=== PATIENT | female | born 1965 | race Caucasian/White ===

== ENCOUNTER 2024-07-16 09:28 | Outpatient (AMB) | payer BC, SELFPAY ==
[2024-07-16 09:55] VITALS: BP 110/73; PULSE 69; RESP 18; TEMP 36.2; O2SAT 97; BMI 41.4
--- NOTE | 2024-07-16 09:55 | PD.ORTHCLVIS ---
Vital signs 07/16/24 09:55 Height 1.63 m Height Method Stated Weight 109.458 kg Weight Measurement Method Standing Scale BMI 41.4 BP 110/73 Blood Pressure Source Automatic Cuff Blood Pressure Location Left Upper Arm Position Sitting Respiration 18 Pulse 69 Pulse Source Monitor Temp 97.2 F Temp Source Temporal Artery Scan Pulse Oximetry (%) 97 Oxygen Delivery Method Room Air Med/Allergies Allergies & Medications Allergies No Known Allergies Allergy (Verified 07/16/24 09:56) Medication Reconciliation estradiol 2 mg tablet 2 mg PO QDAY 02/01/19 [History Confirmed 02/01/19] diclofenac sodium 3 % topical gel 1 applic topical BID #100 grams 07/16/24 [Rx] magnesium 200 mg tablet 200 mg PO QDAY 07/16/24 [History Confirmed 07/16/24] montelukast 10 mg tablet 10 mg PO QDAY 07/16/24 [History Confirmed 07/16/24] ondansetron HCl 4 mg tablet 4 mg PO Q8H 07/16/24 [History Confirmed 07/16/24] Subjective Visit Visit for: knee Immunization / Flu Flu Vaccine in the Last 12 Months: No Flu Vaccine Exclusion Criteria: No Exclusion Criteria History of Present Illness Chief complaint: LEFT KNEE PAIN Date of injury / onset of symptoms: YEARS Patient is a pleasant 58-year-old female with bilateral knee pain worse on the left. She is using a cane. She has had hyaluronic acid acid injections in the past. Also tried naproxen. She has been trying to lose weight and has Had bariatric surgery before. Personal History Occupation: UNEMPLOYED Red flag PMH: none Pain Pain level (0-10): 8 Pain duration: ALL DAY Pain location: inside (medial), outside (lateral), anterior and posterior Pain quality: sharp, dull and aching Pain timing: increases with activity Associated signs & symptoms: numbness, weakness and stiffness Ambulatory data Ambulatory device: cane Treatments Improvement with previous injections: No Improvement with PT: No Improvement with NSAIDS: n/a Review of Systems Review of Systems: All systems negative unless otherwise noted in HPI. Exam Exam Patient is in no acute distress and is cooperative with the examination today. Breathing is nonlabored. In no respiratory distress. Bilateral extremities were evaluated and demonstrates sensation intact to light touch. Palpable pedal pulses are present. No significant edema is present. Bilateral hips were examined. The patient has no pain with log roll of the hips. Internal rotation to 30 degrees and external rotation to 30 degrees is painless. Negative FADIR. The left knee was examined. The left knee is in [varus] alignment. Range of motion from [0-115] degrees. Knee is stable to varus and valgus as well as AP translation with <5mm. Patient has a [negative] McMurrays. There is [no] pain with patellofemoral compression and [no] crepitus noted. The knee is [tender] to palpation [medially]. The right knee was also examined. The right knee is in [varus] alignment. Range of motion from [0-120] degrees. Knee is stable to varus and valgus as well as AP translation with <5mm. Patient has a [negative] McMurrays. There is [no] pain with patellofemoral compression and [no] crepitus noted. The knee is [tender] to palpation [medially]. Patient has an MRI which demonstrates areas of chondromalacia including the patella as well as a osteochondral defect in the medial side of her femur and tibia. 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 ([id number]) Past Medical History Past Medical History Have you ever been diagnosed with any of the following: Neurological Problems Seizures: No Cardiology Problems Congestive Heart Failure: No Respiratory Problems Chronic Obstructive Pulmonary Disease (COPD): No Asthma: Yes Stomache/Intestinal Problems Gastroesophageal Reflux Disease: Yes Genital/Urinary Problems Renal Disease: No Endocrine Problems Diabetes Mellitus Type 1: No Diabetes Mellitus Type 2: No Blood Problems Anemia: Yes Other Problems Blood Transfusions: No Blood Transfusion Reaction: No Anesthesia Reactions: No Surgical History Hysterectomy: Yes
== END 2024-07-16 10:21 | disposition home or self-care (01) ==
LOC: HODSRG 09:28
PROVIDERS: PCP Internal Medicine; Referring Provider Internal Medicine; Supervising Provider Orthopaedic Surgery Adult Reconstructive Orthopaedic Surgery; Visit Provider Orthopaedic Surgery Adult Reconstructive Orthopaedic Surgery
DX: M17.0 Bilateral primary osteoarthritis of knee (principal); M25.562 Pain in left knee; M25.561 Pain in right knee
CPT/HCPCS: 99203; G0463

== ENCOUNTER → 2024-07-16 | Outpatient (CLI) | payer BC, SELFPAY ==
--- NOTE | 2024-07-16 | XR_ITS ---
Examination: Bilateral knees 2 views Right lateral knee left lateral knee 2 views Right axial knee left axial knee 2 views TECHNIQUE: Bilateral AP knees standing single view, bilateral PA knees standing single view 30 degrees flexion Standing right lateral knee left lateral knee Right axial left axial knee 2 views total 6 views Exam date and time: July 16, 2024 1111 hours INDICATIONS: Bilateral knee pain swelling joint popping 2 years FINDINGS: Moderate osteopenia Mild narrowing medial joint space left knee No fracture or dislocation involving either knee Mild bilateral osteoarthritis patellofemoral joints IMPRESSION: Mild osteoarthritis as above
== END | disposition home or self-care (01) ==
LOC: CDIM 10:42
PROVIDERS: PCP Internal Medicine; Referring Provider Orthopaedic Surgery Adult Reconstructive Orthopaedic Surgery; Visit Provider Orthopaedic Surgery Adult Reconstructive Orthopaedic Surgery
DX: M17.0 Bilateral primary osteoarthritis of knee (principal)
CPT/HCPCS: 73564

== ENCOUNTER 2024-08-02 10:51 | Outpatient (AMB) | payer BC, SELFPAY ==
--- NOTE | 2024-08-02 10:48 | ORTHONT_ITS ---
Med/Allergies Allergies & Medications Allergies No Known Allergies Allergy (Verified 08/02/24 10:48) Medication Reconciliation estradiol 2 mg tablet 2 mg PO QDAY 02/01/19 [History Confirmed 08/02/24] diclofenac sodium 3 % topical gel 1 applic topical BID #100 grams 07/16/24 [Rx Confirmed 08/02/24] magnesium 200 mg tablet 200 mg PO QDAY 07/16/24 [History Confirmed 08/02/24] montelukast 10 mg tablet 10 mg PO QDAY 07/16/24 [History Confirmed 08/02/24] ondansetron HCl 4 mg tablet 4 mg PO Q8H 07/16/24 [History Confirmed 08/02/24] meloxicam 7.5 mg tablet 7.5 mg PO QDAY #45 tabs 08/02/24 [Rx] omeprazole 40 mg capsule,delayed release 40 mg PO QDAY #30 caps 08/02/24 [Rx] Subjective Visit Visit for: knee and x-rays Immunization / Flu Flu Vaccine in the Last 12 Months: No Flu Vaccine Exclusion Criteria: No Exclusion Criteria History of Present Illness Chief complaint: F/U XRAYS Date of injury / onset of symptoms: YEARS Patient is a pleasant 58-year-old female with bilateral knee pain worse on the left. She is using a cane. She has had hyaluronic acid acid injections in the past. Also tried naproxen. She has been trying to lose weight and has Had bariatric surgery before. Personal History Occupation: UNEMPLOYED Red flag PMH: none Pain Pain level (0-10): 2 Pain duration: COMES AND GOES Pain location: inside (medial), outside (lateral) and anterior Pain quality: sharp, dull and aching Pain timing: increases with activity Associated signs & symptoms: weakness and stiffness Ambulatory data Ambulatory device: cane Treatments Improvement with previous injections: No Improvement with PT: No Improvement with NSAIDS: no Review of Systems Review of Systems: All systems negative unless otherwise noted in HPI. Assessment and Plan Problem List (1) Degenerative arthritis of knee, bilateral: Status: Acute Plan: We went over x-ray results. She has mild arthritis of both knees. We discussed that degenerative meniscal tears usually treated nonoperatively. We recommend weight loss, injections, anti-inflammatories. We have sent her Anti- inflammatories. We will see her back for a cortisone injection. We will also have her get a brace. 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
== END 2024-08-02 11:08 | disposition home or self-care (01) ==
LOC: HODSRG 10:51
PROVIDERS: PCP Internal Medicine; Referring Provider Internal Medicine; Supervising Provider Orthopaedic Surgery Adult Reconstructive Orthopaedic Surgery; Visit Provider Orthopaedic Surgery Adult Reconstructive Orthopaedic Surgery
DX: M17.0 Bilateral primary osteoarthritis of knee (principal); M25.562 Pain in left knee; M25.561 Pain in right knee
CPT/HCPCS: 99212; G0463

== ENCOUNTER 2024-08-23 11:13 | Outpatient (AMB) | payer BC, SELFPAY ==
[2024-08-23 11:18] VITALS: BP 98/65; PULSE 72; RESP 18; TEMP 36.7; O2SAT 97; BMI 42.0
--- NOTE | 2024-08-23 11:18 | ORTHONT_ITS ---
Vital signs 08/23/24 11:18 Height 1.63 m Height Method Stated Weight 111.669 kg Weight Measurement Method Standing Scale BMI 42.0 BP 98/65 Blood Pressure Source Automatic Cuff Blood Pressure Location Left Upper Arm Position Sitting Respiration 18 Pulse 72 Pulse Source Monitor Temp 98.0 F Temp Source Temporal Artery Scan Pulse Oximetry (%) 97 Oxygen Delivery Method Room Air Med/Allergies Allergies & Medications Allergies No Known Allergies Allergy (Verified 08/23/24 11:19) Medication Reconciliation estradiol 2 mg tablet 2 mg PO QDAY 02/01/19 [History Confirmed 08/23/24] diclofenac sodium 3 % topical gel 1 applic topical BID #100 grams 07/16/24 [Rx Confirmed 08/23/24] magnesium 200 mg tablet 200 mg PO QDAY 07/16/24 [History Confirmed 08/23/24] montelukast 10 mg tablet 10 mg PO QDAY 07/16/24 [History Confirmed 08/23/24] ondansetron HCl 4 mg tablet 4 mg PO Q8H 07/16/24 [History Confirmed 08/23/24] meloxicam 7.5 mg tablet 7.5 mg PO QDAY #45 tabs 08/02/24 [Rx Confirmed 08/23/24] omeprazole 40 mg capsule,delayed release 40 mg PO QDAY #30 caps 08/02/24 [Rx Confirmed 08/23/24] Exam Exam Patient is in no acute distress and is cooperative with the examination today. Breathing is nonlabored. In no respiratory distress. Bilateral extremities were evaluated and demonstrates sensation intact to light touch. Palpable pedal pulses are present. No significant edema is present. Bilateral hips were examined. The patient has no pain with log roll of the hips. Internal rotation to 30 degrees and external rotation to 30 degrees is painless. Negative FADIR. The left knee was examined. The left knee is in [varus] alignment. Range of motion from [0-115] degrees. Knee is stable to varus and valgus as well as AP translation with <5mm. Patient has a [negative] McMurrays. There is [no] pain with patellofemoral compression and [no] crepitus noted. The knee is [tender] to palpation [medially]. The right knee was also examined. The right knee is in [varus] alignment. Range of motion from [0-120] degrees. Knee is stable to varus and valgus as well as AP translation with <5mm. Patient has a [negative] McMurrays. There is [no] pain with patellofemoral compression and [no] crepitus noted. The knee is [tender] to palpation [medially]. Patient has an MRI which demonstrates areas of chondromalacia including the patella as well as a osteochondral defect in the medial side of her femur and tibia. Bilateral knee x-rays demonstrate mild arthritis Assessment and Plan Problem List (1) Degenerative arthritis of knee, bilateral: Status: Acute Plan: We went over x-ray results. She has mild arthritis of both knees. We discussed that degenerative meniscal tears usually treated nonoperatively. We recommend weight loss, injections, anti-inflammatories. We have sent her Anti- inflammatories. Recommend knee cortisone injection as patient would like to proceed with conservative treatment at this time. The risks and benefits of the procedure were reviewed with the patient and patient gave verbal consent to continue with the procedure. Procedure: performed by Dr. Mancuso Using sterile technique the left knee was thoroughly prepped with alcohol, and approximately 1 cc of Kenalog 40 mg/mL and 4 cc of 1% lidocaine was injected without resistance into the medial tibial femoral joint space. The patient tolerated the procedure. Office Procedures GNS Level of Care Nursing/Assessment Patient Status: Established Patient Nursing Assessment/Reassesment: Medication Reconciliation, Update PMH in EMR and Vital Signs Coordination of Care: Complex Care and Chronic Disease 1-5, Education Complex Pt/Fam, Consent,records obtained, informed consent, 1 Ins Authorization, Results/Orders obtained and Staff clarify orders Established Patient Charge Established Patient Point Assignment: 110 Established Patient Point Charge: EP Level 3 (80-115) Surgical Proc/IM SQ injection Major Surgical Procedure: Yes (KNEE INJECTION ) Medication Given Medication Given Medication Given: Yes Documented Dose Given: 4 Route: Infiitration Medication Given Medication Given Medication Given: Yes Documented Dose Given: 1 Route: Infiitration Office Meds Xylocaine 10 mg/mL (1 %) injection solution Performing Provider: Apolinar Mancuso MD Performing Location: [facility] Administered by: Apolinar Mancuso MD on 08/23/24 11:51 Dose Route Admin Location Dispensed Lot Number Expiration Date [facility] Formulation Scientist 20 mL Infiltration 20 mL [id number] FRESENI[employer] KABI triamcinolone acetonide 40 mg/mL suspension for injection Performing Provider: Apolinar Mancuso MD Performing Location: [facility] Administered by: Apolinar Mancuso MD on 08/23/24 11:51 Dose Route Admin Location Dispensed Lot Number Expiration Date [facility] Formulation Scientist 40 mg intra-articular KNEE 1 mL [id number] 12/12/25 6217-3070-67 TEVA PARENTERAL [place] Intake Visit Data Collection New Patient or Established: Established Patient (seen at [facility] within 3 years) Reason for Visit:: LEFT KNEE PAIN Seen by Clinical Staff ONLY (RN/MA): No [employer] Learning Support Teacher Required: No PCP or OBGYN visit in last 3 months: Yes Hx Now: No Do You Feel Safe at Home: Yes Authorities Contacted: N/A Questionairres Past Medical History Past Medical History Have you ever been diagnosed with any of the following: Neurological Problems Seizures: No Cardiology Problems Congestive Heart Failure: No Respiratory Problems Chronic Obstructive Pulmonary Disease (COPD): No Asthma: Yes Stomache/Intestinal Problems Gastroesophageal Reflux Disease: Yes Genital/Urinary Problems Renal Disease: No Endocrine Problems Diabetes Mellitus Type 1: No Diabetes Mellitus Type 2: No Blood Problems Anemia: Yes Other Problems Blood Transfusions: No Blood Transfusion Reaction: No Anesthesia Reactions: No Surgical History Hysterectomy: Yes Subjective Visit Visit for: follow up visit and knee (LEFT) Immunization / Flu Flu Vaccine in the Last 12 Months: No Flu Vaccine Exclusion Criteria: No Exclusion Criteria History of Present Illness Chief complaint: left knee pain Patient is a pleasant 58-year-old female with bilateral knee pain worse on the left. She is using a cane. She has had hyaluronic acid injections in the past. She has Also tried naproxen. She has been trying to lose weight and has Had bariatric surgery before. Pain Pain level (0-10): 6 Pain duration: COMES AND GOES Pain location: inside (medial) Pain quality: sharp, dull and aching Pain timing: night, increases with activity and stairs Associated signs & symptoms: none Ambulatory data Ambulatory device: cane Treatments Improvement with previous injections: No Improvement with PT: No Improvement with NSAIDS: no Review of Systems Review of Systems: All systems negative unless otherwise noted in HPI.
== END 2024-08-23 11:41 | disposition home or self-care (01) ==
LOC: HODSRG 11:13
PROVIDERS: PCP Internal Medicine; Referring Provider Internal Medicine; Supervising Provider Orthopaedic Surgery Adult Reconstructive Orthopaedic Surgery; Visit Provider Orthopaedic Surgery Adult Reconstructive Orthopaedic Surgery
DX: M17.0 Bilateral primary osteoarthritis of knee (principal); M25.562 Pain in left knee; M25.561 Pain in right knee
CPT/HCPCS: 20610; 99213; J3301; J3490; G0463

== ENCOUNTER → 2024-08-27 | Outpatient (CLI) | payer BC, SELFPAY ==
[2024-08-27 10:22] LABS: Collection Type, Urine Clean Catch
[2024-08-27 10:41] LABS: Basophils # (Auto) 0.1 Thou/mm3 (0.0-0.2); Basophils % (Auto) 1 % (0-2.5); Eosinophils % (Auto) 1 % (0-10); Hematocrit 40.8 % (36.0-46.0); Immature Granulocytes % (Auto) 0 % (0-0); Immature Granulocytes Auto 0.01 Thou/mm3 (0.00-0.00); Lymphocytes # (Auto) 1.6 Thou/mm3 (1.0-4.8); Lymphocytes % (Auto) 28 % (10-50); Mean Corpuscular HGB Conc 31.9 g/dl (31.0-37.0); Mean Corpuscular Hemoglobin 28.8 pg (25.0-35.0); Mean Corpuscular Volume 91 fL (80-100); Monocytes # (Auto) 0.4 Thou/mm3 (0.0-0.8); Monocytes % (Auto) 8 % (0-12); Neutrophils # (Auto) 3.5 Thou/mm3 (1.8-7.7); Neutrophils % (Auto) 62 % (37-80); Nucleated Red Blood Cell % 0 /100 WBC (0); Platelet Count 249 Thou/mm3 (140-440); RDW Standard Deviation 41.1 fL (36.4-46.3); Red Blood Count 4.51 Miln/mm3 (4.00-5.20); White Blood Count 5.6 Thou/mm3 (3.6-11.0)
[2024-08-27 10:41] LABS: Bilirubin,Urine Negative (Negative); Blood,Urine Trace (Negative); Clarity,Urine Clear (Clear/Hazy); Color,Urine Yellow (Lt Yel-Yel); Culture Indicated,Urine Not Indicated; Glucose, Urine Negative (Negative); Ketones,Urine Negative (Negative); Leukocyte Esterase,Urine Negative (Negative); Nitrite,Urine Negative (Negative); Protein,Urine Negative (Neg - Trace); RBC,Urine 2 /hpf (0-3); Specific Gravity,Urine 1.024 (1.001-1.035); Squamous Epithelial Cell,Urine < 1 /hpf (0-5); Urobilinogen,Urine Negative mg/dL (0.0-1.0); WBC,Urine 1 /hpf (0-5)
[2024-08-27 10:59] LABS: T4 (Thyroxine) 10.1 mcg/dL (4.5-10.9)
[2024-08-27 11:03] LABS: Vitamin D 25 Hydroxy Total 24.8 ng/mL (7.3-40.2)
[2024-08-27 11:16] LABS: Alanine Aminotransferase 9 U/L (10-49); Albumin, Serum 4.7 gm/dL (3.5-5.0); Albumin/Globulin Ratio 2.2 (1.2-2.2); Alkaline Phosphatase 109 U/L (46-116); Anion Gap 9 (7-16); Aspartate Amino Transferase 12 U/L (0-34); BUN/Creatinine Ratio 16 Ratio (12-20); Bilirubin,Total 0.6 mg/dL (0.3-1.2); Blood Urea Nitrogen 13 mg/dL (9-23); Calcium 9.6 mg/dL (8.3-10.6); Calcium (Corrected) 9.6 mg/dL (8.5-10.1); Carbon Dioxide 29.2 mMol/L (20.0-31.0); Chloride 105 mMol/L (98-107); Cholesterol 170 mg/dL (132-200); Creatinine (Component) 0.8 mg/dL (0.6-1.3); Free T4 (Free Thyroxine) 1.22 ng/dL (0.89-1.76); Globulin 2.1 gm/dL (2.3-3.5); Glucose 92 mg/dL (74-106); HDL Cholesterol 57 mg/dL (40-60); LDL Cholesterol,Calculated 98 mg/dL (0-130); Osmolality,Calculated 285 (275-295); Potassium 4.1 mMol/L (3.4-5.1); Sodium 143 mMol/L (136-145); Thyroid Stimulating Hormone 1.16 uIU/mL (0.55-4.78); Total Protein 6.8 gm/dL (5.7-8.2); Triglycerides 74 mg/dL (30-150); eGFR > 60 See Note
[2024-08-30 07:05] LABS: T3,Total* 98 ng/dL (76-181); Thyroglobulin Antibodies* <1 IU/mL (< OR = 1); Thyroid Peroxidase Antibodies* <1 IU/mL (<9)
== END | disposition home or self-care (01) ==
LOC: COPL 09:53
PROVIDERS: PCP Family Medicine; Referring Provider Nurse Practitioner Family; Visit Provider Nurse Practitioner Family
DX: Z00.00 Encounter for general adult medical examination without abnormal findings (principal); E78.5 Hyperlipidemia, unspecified; E03.9 Hypothyroidism, unspecified; N39.0 Urinary tract infection, site not specified; E55.9 Vitamin D deficiency, unspecified; R10.9 Unspecified abdominal pain; R14.0 Abdominal distension (gaseous); Z13.29 Encounter for screening for other suspected endocrine disorder; Z13.0 Encounter for screening for diseases of the blood and blood-forming organs and certain disorders involving the immune mechanism; Z13.21 Encounter for screening for nutritional disorder; Z13.220 Encounter for screening for lipoid disorders
CPT/HCPCS: 36415; 80053; 80061; 81001; 82306; 84436; 84439; 84443; 84480; 85025; 86376; 86800

== ENCOUNTER 2025-01-21 12:58 | Outpatient (AMB) | payer BC, SELFPAY ==
--- NOTE | 2025-01-21 13:08 | ORTHONT_ITS ---
Vital signs 01/21/25 13:09 Height 1.63 m Height Method Stated Weight 106.254 kg Weight Measurement Method Standing Scale BMI 39.9 BP 103/72 Blood Pressure Source Automatic Cuff Blood Pressure Location Left Upper Arm Position Sitting Respiration 18 Pulse 78 Pulse Source Monitor Temp 97.5 F Temp Source Temporal Artery Scan Pulse Oximetry (%) 97 Oxygen Delivery Method Room Air Med/Allergies Allergies & Medications Allergies No Known Allergies Allergy (Verified 01/21/25 13:10) Medication Reconciliation estradiol 2 mg tablet 2 mg PO QDAY 02/01/19 [History Confirmed 01/21/25] diclofenac sodium 3 % topical gel 1 applic topical BID #100 grams 07/16/24 [Rx Confirmed 01/21/25] magnesium 200 mg tablet 200 mg PO QDAY 07/16/24 [History Confirmed 01/21/25] montelukast 10 mg tablet 10 mg PO QDAY 07/16/24 [History Confirmed 01/21/25] ondansetron HCl 4 mg tablet 4 mg PO Q8H 07/16/24 [History Confirmed 01/21/25] meloxicam 7.5 mg tablet 7.5 mg PO QDAY #45 tabs 08/02/24 [Rx Confirmed 01/21/25] omeprazole 40 mg capsule,delayed release 40 mg PO QDAY #30 caps 08/02/24 [Rx Confirmed 01/21/25] celecoxib 200 mg capsule 200 mg PO BID PRN pain #60 caps 01/21/25 [Rx] diclofenac sodium 3 % topical gel 1 applic topical BID #100 grams 01/21/25 [Rx] Exam Exam Patient is in no acute distress and is cooperative with the examination today. Breathing is nonlabored. In no respiratory distress. Bilateral extremities were evaluated and demonstrates sensation intact to light touch. Palpable pedal pulses are present. No significant edema is present. Bilateral hips were examined. The patient has no pain with log roll of the hips. Internal rotation to 30 degrees and external rotation to 30 degrees is painless. Negative FADIR. The left knee was examined. The left knee is in [varus] alignment. Range of motion from [0-115] degrees. Knee is stable to varus and valgus as well as AP translation with <5mm. Patient has a [negative] McMurrays. There is [no] pain with patellofemoral compression and [no] crepitus noted. The knee is [tender] to palpation [medially]. The right knee was also examined. The right knee is in [varus] alignment. Range of motion from [0-120] degrees. Knee is stable to varus and valgus as well as AP translation with <5mm. Patient has a [negative] McMurrays. There is [no] pain with patellofemoral compression and [no] crepitus noted. The knee is [tender] to palpation [medially]. Patient has an MRI which demonstrates areas of chondromalacia including the patella as well as a osteochondral defect in the medial side of her femur and tibia. Bilateral knee x-rays demonstrate mild arthritis Assessment and Plan Problem List (1) Degenerative arthritis of knee, bilateral: Status: Acute Plan: We went over x-ray results. She has mild arthritis of both knees. We discussed that degenerative meniscal tears usually treated nonoperatively. We recommend weight loss, injections, anti-inflammatories. We have sent her Anti- inflammatories Both topical and oral. She had difficulty getting it filled the last time. We will see her back in approximately 2 months Office Procedures GNS Level of Care Nursing/Assessment Patient Status: Established Patient Nursing Assessment/Reassesment: Medication Reconciliation, Update PMH in EMR and Vital Signs Coordination of Care: Complex Care and Chronic Disease 1-5, Education Complex Pt/Fam, Consent,records obtained, informed consent, Results/Orders obtained and Staff clarify orders Established Patient Charge Established Patient Point Assignment: 95 Established Patient Point Charge: Level 3 (80-115) MA Intake Visit Data Collection New Patient or Established: Established Patient (seen at [facility] within 3 years) Reason for Visit:: FOLLOW UP KNEE INJECTION Seen by Clinical Staff ONLY (RN/MA): No PCP or OBGYN visit in last 3 months: Yes Hx Now: No Do You Feel Safe at Home: Yes Authorities Contacted: N/A Questionairres Past Medical History Past Medical History Have you ever been diagnosed with any of the following: Neurological Problems Seizures: No Cardiology Problems Congestive Heart Failure: No Respiratory Problems Chronic Obstructive Pulmonary Disease (COPD): No Asthma: Yes Smoking: No Smoking Exposure: No Stomache/Intestinal Problems Gastroesophageal Reflux Disease: Yes Genital/Urinary Problems Renal Disease: No Endocrine Problems Diabetes Mellitus Type 1: No Diabetes Mellitus Type 2: No Blood Problems Anemia: Yes Other Problems Blood Transfusions: No Blood Transfusion Reaction: No Anesthesia Reactions: No Surgical History Hysterectomy: Yes Subjective Visit Visit for: follow up visit, knee and injections Immunization / Flu Flu Vaccine in the Last 12 Months: No Flu Vaccine Exclusion Criteria: No Exclusion Criteria History of Present Illness Chief complaint: left knee pain Patient is a pleasant 58-year-old female with bilateral knee pain worse on the left. She is using a cane. She has had hyaluronic acid injections in the past. She has Also tried naproxen. She has been trying to lose weight and has Had bariatric surgery before. Pain Pain level (0-10): 6 Pain duration: WITH BENDING Pain location: inside (medial), outside (lateral), anterior and posterior Pain quality: dull and aching Pain timing: increases with activity, stairs and other (specify) (BENDING) Associated signs & symptoms: none Ambulatory data Ambulatory device: none Treatments Number of previous injections: 1 Improvement with previous injections: No Improvement with PT: No Improvement with NSAIDS: no Review of Systems Review of Systems: All systems negative unless otherwise noted in HPI.
[2025-01-21 13:09] VITALS: BP 103/72; PULSE 78; RESP 18; TEMP 36.4; O2SAT 97; BMI 39.9
== END 2025-01-21 13:23 | disposition home or self-care (01) ==
LOC: HODSRG 12:58
PROVIDERS: PCP Internal Medicine; Referring Provider Internal Medicine; Supervising Provider Orthopaedic Surgery Adult Reconstructive Orthopaedic Surgery; Visit Provider Orthopaedic Surgery Adult Reconstructive Orthopaedic Surgery
DX: M17.0 Bilateral primary osteoarthritis of knee (principal); M25.562 Pain in left knee; M25.561 Pain in right knee; K21.9 Gastro-esophageal reflux disease without esophagitis
CPT/HCPCS: 99213; G0463

== ENCOUNTER 2025-05-13 09:56 | Outpatient (AMB) | payer BC, SELFPAY ==
--- NOTE | 2025-05-13 10:07 | ORTHONT_ITS ---
Vital signs 05/13/25 10:09 Height 1.63 m Height Method Measured Weight 97.607 kg Weight Measurement Method Standing Scale BMI 36.7 BP 105/74 Blood Pressure Source Automatic Cuff Blood Pressure Location Left Upper Arm Position Sitting Respiration 18 Pulse 100 Pulse Source Monitor Temp 97.3 F Temp Source Temporal Artery Scan Pulse Oximetry (%) 97 Oxygen Delivery Method Room Air Med/Allergies Allergies & Medications Allergies adhesive tape Allergy (Verified 05/13/25 10:11) latex Allergy (Verified 05/13/25 10:11) Medication Reconciliation estradiol 2 mg tablet 2 mg PO QDAY 02/01/19 [History Confirmed 05/13/25] diclofenac sodium 3 % topical gel 1 applic topical BID #100 grams 07/16/24 [Rx Confirmed 05/13/25] magnesium 200 mg tablet 200 mg PO QDAY 07/16/24 [History Confirmed 05/13/25] montelukast 10 mg tablet 10 mg PO QDAY 07/16/24 [History Confirmed 05/13/25] ondansetron HCl 4 mg tablet 4 mg PO Q8H 07/16/24 [History Confirmed 05/13/25] meloxicam 7.5 mg tablet 7.5 mg PO QDAY #45 tabs 08/02/24 [Rx Confirmed 05/13/25] omeprazole 40 mg capsule,delayed release 40 mg PO QDAY #30 caps 08/02/24 [Rx Confirmed 05/13/25] celecoxib 200 mg capsule 200 mg PO BID PRN pain #60 caps 01/21/25 [Rx Confirmed 05/13/25] diclofenac sodium 3 % topical gel 1 applic topical BID #100 grams 01/21/25 [Rx Confirmed 05/13/25] Exam Exam Patient is in no acute distress and is cooperative with the examination today. Breathing is nonlabored. In no respiratory distress. Bilateral extremities were evaluated and demonstrates sensation intact to light touch. Palpable pedal pulses are present. No significant edema is present. Bilateral hips were examined. The patient has no pain with log roll of the hips. Internal rotation to 30 degrees and external rotation to 30 degrees is painless. Negative FADIR. The left knee was examined. The left knee is in [varus] alignment. Range of motion from [0-115] degrees. Knee is stable to varus and valgus as well as AP translation with <5mm. Patient has a [negative] Mc[place]rays. There is [no] pain with patellofemoral compression and [no] crepitus noted. The knee is [tender] to palpation [medially]. The right knee was also examined. The right knee is in [varus] alignment. Range of motion from [0-120] degrees. Knee is stable to varus and valgus as well as AP translation with <5mm. Patient has a [negative] Mc[place]rays. There is [no] pain with patellofemoral compression and [no] crepitus noted. The knee is [tender] to palpation [medially]. Patient has an MRI which demonstrates areas of chondromalacia including the patella as well as a osteochondral defect in the medial side of her femur and tibia. Bilateral knee x-rays demonstrate mild arthritis Assessment and Plan Problem List (1) Degenerative arthritis of knee, bilateral: Status: Acute Plan: We went over x-ray results. She has mild arthritis of both knees. We discussed that degenerative meniscal tears usually treated nonoperatively. We recommend weight loss, injections, anti-inflammatories. We have sent her Anti- inflammatories Both topical and oral. We will need to get authorization for her diclofenac cream. She has not tried this and would like to try it. We will also get approval for hyaluronic acid (2) Back pain: Status: Acute Plan: The patient has back pain and would like to get a massage for her scar tissue. She would like to start physical therapy Office Procedures GNS Level of Care Nursing/Assessment Patient Status: Established Patient Nursing Assessment/Reassesment: Medication Reconciliation, Update PMH in EMR and Vital Signs Coordination of Care: Complex Care and Chronic Disease 1-5, Education Complex Pt/Fam, Consent,records obtained, informed consent, Results/Orders obtained and Staff clarify orders Established Patient Charge Established Patient Point Assignment: 95 Established Patient Point Charge: EP Level 3 (80-115) MA Intake Visit Data Collection New Patient or Established: Established Patient (seen at [facility] within 3 years) Reason for Visit:: 2 MONTH F/U Seen by Clinical Staff ONLY (RN/MA): No Director Treasurer Required: No PCP or OBGYN visit in last 3 months: Yes Hx Now: No Do You Feel Safe at Home: Yes Authorities Contacted: N/A Questionairres Past Medical History Past Medical History Have you ever been diagnosed with any of the following: Neurological Problems Seizures: No Cardiology Problems Congestive Heart Failure: No Respiratory Problems Chronic Obstructive Pulmonary Disease (COPD): No Asthma: Yes Smoking: No Smoking Exposure: No Stomache/Intestinal Problems Gastroesophageal Reflux Disease: Yes Genital/Urinary Problems Renal Disease: No Endocrine Problems Diabetes Mellitus Type 1: No Diabetes Mellitus Type 2: No Blood Problems Anemia: Yes Other Problems Blood Transfusions: No Blood Transfusion Reaction: No Anesthesia Reactions: No Surgical History Hysterectomy: Yes Subjective Visit Visit for: follow up visit and knee Immunization / Flu Flu Vaccine in the Last 12 Months: No Flu Vaccine Exclusion Criteria: No Exclusion Criteria History of Present Illness Chief complaint: left knee pain Patient is a pleasant 58-year-old female with bilateral knee pain worse on the left. She is using a cane. She has Also tried naproxen. She has been trying to lose weight and has Had bariatric surgery before. She has lost 30 pounds in the last saw her. She also had a spinal stimulator placed recently and wants to start therapy for this Pain Pain level (0-10): 3 Pain duration: WITH BENDING Pain location: inside (medial), outside (lateral), anterior and posterior Pain quality: dull and aching Pain timing: increases with activity, stairs and other (specify) (BENDING) Associated signs & symptoms: none Ambulatory data Ambulatory device: none Treatments Number of previous injections: 1 Improvement with previous injections: No Improvement with PT: No Improvement with NSAIDS: no Review of Systems Review of Systems: All systems negative unless otherwise noted in HPI.
[2025-05-13 10:09] VITALS: BP 105/74; PULSE 100; RESP 18; TEMP 36.3; O2SAT 97; BMI 36.7
== END 2025-05-13 10:37 | disposition home or self-care (01) ==
LOC: HODSRG 09:56
PROVIDERS: PCP Internal Medicine; Referring Provider Internal Medicine; Supervising Provider Orthopaedic Surgery Adult Reconstructive Orthopaedic Surgery; Visit Provider Orthopaedic Surgery Adult Reconstructive Orthopaedic Surgery
DX: M17.0 Bilateral primary osteoarthritis of knee (principal); M54.9 Dorsalgia, unspecified; K21.9 Gastro-esophageal reflux disease without esophagitis; M25.562 Pain in left knee; M25.561 Pain in right knee; Z98.84 Bariatric surgery status
CPT/HCPCS: 99213; G0463

== ENCOUNTER → 2025-07-15 | Outpatient (CLI) | payer BC, SELFPAY ==
[2025-07-15 13:10] LABS: Alanine Aminotransferase 10 U/L (10-49); Albumin, Serum 4.8 gm/dL (3.5-5.0); Alkaline Phosphatase 86 U/L (46-116); Aspartate Amino Transferase 20 U/L (0-34); Bilirubin,Direct 0.2 mg/dL (0.0-0.3); Bilirubin,Total 0.5 mg/dL (0.3-1.2); Total Protein 7.0 gm/dL (5.7-8.2)
== END | disposition home or self-care (01) ==
PROVIDERS: PCP Nurse Practitioner Family; Referring Provider Nurse Practitioner Family; Visit Provider Nurse Practitioner Family
DX: B35.1 Tinea unguium (principal)
CPT/HCPCS: 36415; 80076